=== PATIENT | male | born 1955 | race Two or more races ===

== ENCOUNTER 2019-02-03 07:22 | Emergency (ER) | payer OTHER ==
[~2019-02-03] VITALS: Ht 167.6 cm; Wt 77.0 kg
[2019-02-03] MEDS ORDERED: ACETAMINOPHEN 500MG TABLET PO ONE (07:45)
[2019-02-03] MEDS ORDERED: IBUPROFEN 600MG TABLET PO ONE (07:45)
[2019-02-03 08:22] VITALS: BP 142/89
== END 2019-02-03 08:24 | disposition left against medical advice (07) ==
LOC: ER 07:22
DX: M54.5 Low back pain (principal); X50.0XXA Overexertion from strenuous movement or load, initial encounter; Y93.89 Activity, other specified; Y92.89 Other specified places as the place of occurrence of the external cause; Y99.0 Civilian activity done for income or pay
CPT/HCPCS: 99283